=== PATIENT | female | born 1930 | race Caucasian/White ===

== ENCOUNTER 2016-11-25 02:39 | Inpatient (IN) | payer MEDICARE, BC ==
[2016-11-25] MEDS ORDERED: METHYLPREDNISOLONE INJ 125 MG/2 ML SDV IV ONE (03:30)
[2016-11-25] MEDS ORDERED: IPRATROPIUM/ALBUTEROL 0.5-2.5 MG/3 ML AMPUL NEB ONE (03:30)
[2016-11-25 04:14] LABS: VENOUS BLOOD BASE EXCESS -0.7 mmol/L; VENOUS BLOOD HCO3 24.3 mmol/L (20-32); VENOUS BLOOD PH 7.39 (7.30-7.42)
[2016-11-25 04:24] LABS: ALANINE AMINOTRANSFERASE 36 U/L (9-52); ALBUMIN 3.3 g/dL (3.5-5.0); ALKALINE PHOSPHATASE 81 U/L (38-126); ANION GAP 15 (5-19); ASPARTATE AMINO TRANSFERASE 25 U/L (14-36); BILIRUBIN,DIRECT 0.3 mg/dL (0.0-0.4); BILIRUBIN,TOTAL 1.1 mg/dL (0.2-1.3); BLOOD UREA NITROGEN 36 mg/dL (7-20); CALCIUM 8.7 mg/dL (8.4-10.2); CARBON DIOXIDE 23 mmol/L (22-30); CHLORIDE 100 mmol/L (98-107); CREATININE RESULT 1.27 mg/dL (0.52-1.25); GLUCOSE 203 mg/dL (75-110); SODIUM 138.1 mmol/L (137-145); TOTAL PROTEIN 5.8 g/dL (6.3-8.2)
[2016-11-25] MEDS ORDERED: NORMAL SALINE 1000 ML 1,000 ML IV ONE (04:43)
[2016-11-25 04:49] LABS: HEMATOCRIT 38.4 % (36.0-47.0); HEMOGLOBIN 12.5 g/dL (12.0-15.5); HGB HCT DIFFERENCE -0.9; MEAN CORPUSCULAR HEMOGLOBIN 29.4 pg (27.0-33.4); MEAN CORPUSCULAR HGB CONC 32.5 g/dL (32.0-36.0); MEAN CORPUSCULAR VOLUME 91 fl (80-97); RED BLOOD COUNT 4.24 10^6/uL (3.72-5.28); RED CELL DISTRIBUTION WIDTH 14.4 % (11.5-14.0); WHITE BLOOD COUNT 24.3 10^3/uL (4.0-10.5)
[2016-11-25 04:59] LABS: BAND NEUTROPHILS % (MANUAL) 7 % (3-5); BASOPHILS % (MANUAL) 0 % (0-2); EOSINOPHILS % (MANUAL) 0 % (0-6); LYMPHOCYTES % (MANUAL) 5 % (13-45); TOTAL CELLS COUNTED 100
[2016-11-25 05:00] LABS: ANISOCYTOSIS SLIGHT; OVALOCYTES SLIGHT; POIKILOCYTOSIS SLIGHT; TOXIC GRANULATION SLIGHT; TOXIC VACUOLATION PRESENT
[2016-11-25 05:01] LABS: SCHISTOCYTES SLIGHT
[2016-11-25 05:10] LABS: CREATINE KINASE MB 1.58 ng/mL (<4.55)
[2016-11-25 05:31] LABS: AMORPHOUS SEDIMENT,URINE TRACE /HPF; APPEARANCE,URINE CLOUDY; BILIRUBIN,URINE NEGATIVE (NEGATIVE); GLUCOSE, URINE NEGATIVE (NEGATIVE); KETONES,URINE NEGATIVE (NEGATIVE); LEUKOCYTE ESTERASE,URINE NEGATIVE (NEGATIVE); NITRITE,URINE NEGATIVE (NEGATIVE); PROTEIN,URINE 30 mg/dL (NEGATIVE); URINE SPECIFIC GRAVITY 1.019; UROBILINOGEN,URINE NEGATIVE mg/dL (<2.0)
[2016-11-25] MEDS ORDERED: CEFTRIAXONE 1 GM/D5W RTU 50 ML IV ONE (05:31)
[2016-11-25] MEDS ORDERED: AZITHROMYCIN INJ 500 MG VIAL IV ONE (05:31)
[2016-11-25] MEDS ORDERED: DEXTROSE 50%-WATER 25 GM/50 ML DISP.SYRIN IV PRN ×2 (06:16)
[2016-11-25] MEDS ORDERED: ACETAMINOPHEN 325 MG TABLET PO PRN (06:16)
[2016-11-25] MEDS ORDERED: DEXTROSE 40% GEL 15 GM TUBE PO PRN ×2 (06:16)
[2016-11-25] MEDS ORDERED: GUAIFENESIN SYRP 200 MG/10 ML UDC PO PRN (06:16)
[2016-11-25] MEDS ORDERED: GLUCAGON,HUMAN RECOMB 1 MG INJ IM PRN (06:16)
--- NOTE | 2016-11-25 06:24 | ER Document Report ---
ED Fall - General TRAVEL OUTSIDE OF THE [place] IN LAST 30 DAYS: No <FRANCISCO JAVIER ANNE - Last Filed: 11/25/16 07:33> <TANIYA MOONEY - Last Filed: 11/26/16 05:29> - General Chief Complaint: Fall Stated Complaint: FALL/HEAD INJURY Notes: Patient is an 86-year-old female presents emergency department via EMS with complaint of fall at home. Patient lives in her own home where she has an aid throughout the day with her. Her aid and daughter state that typically at home she does not wear her oxygen and typically in the middle the night when she has go the bathroom she gets short of breath and dizzy and has a tendency to fall. History including COPD on continuous O2 at 3 L but she often needs to be redirected to wear it. Daughter also notes that she has developed a cough over the past day, she only admits shortness of breath when she is wearing her oxygen but typically when they get her back on her O2 and give her breathing treatment she seems department backup. Denies any fevers at home. Denies any history of coronary artery disease, CHF, history of stroke or TIA. Denies h/o dementia Past medical history significant for hypertension, COPD on continuous 3 L O2, recurrent urinary tract infections, history of scoliosis, history of diverticulosis, history of irregular heart rate. Past surgical history significant for hysterectomy section Social history former smoker, rare alcohol use, denies any drug use. Seasonal allergies, no known drug allergies. (FRANCISCO JAVIER ANNE) - Related data Allergies/Adverse Reactions: No Known Allergies Allergy (Verified 07/29/14 18:23) Past Medical History - Social History Smoking Status: Former Smoker Family History: Reviewed & Not Pertinent - I. - Past Medical History Cardiac Medical History: Reports: Hx Atrial Fibrillation, Hx Hypertension Denies: Hx Heart Attack Pulmonary Medical History: Reports: Hx Asthma Neurological Medical History: Denies: Hx Cerebrovascular Accident, Hx Seizures GI Medical History: Denies: Hx Hepatitis, Hx Hiatal Hernia, Hx Ulcer Infectious Medical History: Denies: Hx Hepatitis Past Surgical History: Reports: Hx Hysterectomy. Denies: Hx Mastectomy, Hx Open Heart Surgery, Hx Pacemaker - Immunizations Hx Diphtheria, Pertussis, Tetanus Vaccination: Yes <FRANCISCO JAVIER ANNE - Last Filed: 11/25/16 07:33> Review of Systems - Review of Systems Constitutional: No symptoms reported EENT: No symptoms reported Cardiovascular: No symptoms reported Respiratory: See HPI Gastrointestinal: No symptoms reported Genitourinary: No symptoms reported Female Genitourinary: No symptoms reported Musculoskeletal: No symptoms reported Skin: No symptoms reported Hematologic/Lymphatic: No symptoms reported Neurological/Psychological: No symptoms reported <FRANCISCO JAVIER ANNE - Last Filed: 11/25/16 07:33> Physical Exam <FRANCISCO JAVIER ANNE - Last Filed: 11/25/16 07:33> <TANIYA MOONEY - Last Filed: 11/26/16 05:29> - Vital signs Vitals: Resp BP Pulse Ox 27 H 113/62 92 11/25/16 02:49 11/25/16 02:49 11/25/16 02:49 - Notes Notes: PHYSICAL EXAM GENERAL: Alert, interacts well. HEAD: Normocephalic, evidence of skin tear on the right eyebrow. EYES: Pupils equal, round, and reactive to light. Extraocular movements intact. ENT: Oral mucosa moist, tongue midline. NECK: Full range of motion. Supple. Trachea midline. LUNGS: Rales noted bilaterally worse on the left side.. No respiratory distress. HEART: Regular rate and rhythm. No murmurs, gallops, or rubs. ABDOMEN: Soft, nondistended, nontender. No guarding, rebound, or rigidity.. Bowel sounds present in all 4 quadrants. EXTREMITIES: Moves all 4 extremities spontaneously. No edema, radial and dorsalis pedis pulses 2/4 bilaterally. No cyanosis. No pain to palpation of all extremities. No evidence of deformities. NEUROLOGICAL: Alert and oriented to person and place but not to time or events. Normal speech. PSYCH: Normal affect, normal mood. SKIN: Warm, dry, elastic turgor. No rashes or lesions noted. Skin tears noted on the right knee, left cox as well as the right elbow. (FRANCISCO JAVIER ANNE) Course - Laboratory Result Diagrams: 11/25/16 04:00 11/25/16 04:00 - Diagnostic Test Radiology reviewed: Image reviewed, Reports reviewed - EKG Interpretation by Me EKG shows normal: Sinus rhythm Rate: Tachycardia [place]/QRS: LAHB/LAFB When compared to previous EKG there are: No significant change <FRANCISCO JAVIER ANNE - Last Filed: 11/25/16 07:33> - Laboratory Result Diagrams: 11/26/16 04:12 11/26/16 04:12 <TANIYA MOONEY - Last Filed: 11/26/16 05:29> - Re-evaluation Re-evalutation: 11/25/16 07:28 Patient is an 86-year-old female presents to the emergency department via EMS after a fall. On initial evaluation, patient is hemodynamically stable, no acute distress and afebrile. Vital signs do reveal tachycardia, saturations in the low 90s on her 2 L of nasal cannula. Given the patient's age, nature of her fall and that is unwitnessed with evidence of skin laceration I consulted supervising physician Dr. Taniya Mooney who recommends a CT of the head and neck without contrast. Basic lab work also sent as well. Return if her chest x-ray did reveal left lower lobe pneumonia. CBC revealed a white blood cell count revealed a leukocytosis with a white blood cell count of 24.3. With the return of his lab a initiation of the sepsis protocol was started. Patient is initiated on IV azithromycin and Rocephin for indication of community-acquired pneumonia. CT the head and neck came back which revealed no evidence of acute fracture or injury. Further review of laboratory evaluation shows evidence of dehydration with mild increase in renal function. With review of all this information and discussion with family, patient needs inpatient criteria for admission for any acquired pneumonia. I have consulted supervising physician Dr. Taniya Mooney who agrees with consultation of hospitalist Dr. Rajiv Tucker for admission. Patient was accepted for inpatient admission for kidney acquired pneumonia. Per [facility] protocol and guidelines, this case was discussed with supervising physician Dr. Taniya Mooney prior to discharge (FRANCISCO JAVIER ANNE) - Vital Signs Vital signs: Temp Pulse Resp BP Pulse Ox 97.5 F 82 22 H 126/81 H 96 11/26/16 00:46 11/26/16 02:00 11/26/16 00:46 11/26/16 00:46 11/26/16 02:00 - Laboratory Laboratory results interpreted by me: 11/25/16 11/25/16 11/25/16 04:00 04:00 04:00 WBC 24.3 H RDW 14.4 H Seg Neuts % (Manual) 83 H Band Neutrophils % 7 H Lymphocytes % (Manual) 5 L Abs Neuts (Manual) 21.9 H BUN 36 H Creatinine 1.27 H Est GFR ( Amer) 48 L Est GFR (Non-Af Amer) 40 L Glucose 203 H Lactic Acid NT-Pro-B Natriuret Pep 3160 H Total Protein 5.8 L Albumin 3.3 L Urine Protein Urine Ascorbic Acid 11/25/16 11/25/16 04:00 05:00 WBC RDW Seg Neuts % (Manual) Band Neutrophils % Lymphocytes % (Manual) Abs Neuts (Manual) BUN Creatinine Est GFR ( Amer) Est GFR (Non-Af Amer) Glucose Lactic Acid 2.4 H NT-Pro-B Natriuret Pep Total Protein Albumin Urine Protein 30 H Urine Ascorbic Acid 40 H Discharge - Discharge Admitting Provider: [facility] Unit Admitted: Telemetry <FRANCISCO JAVIER ANNE - Last Filed: 11/25/16 07:33> <TANIYA MOONEY - Last Filed: 11/26/16 05:29> - Discharge Clinical Impression: Pneumonia Qualifiers: Pneumonia type: due to unspecified organism Laterality: left Lung location: lower lobe of lung Qualified Code(s): J18.1 - Lobar pneumonia, unspecified organism Fall Qualifiers: Encounter type: initial encounter Qualified Code(s): W19.XXXA - Unspecified fall, initial encounter Condition: Stable Disposition: ADMITTED INPATIENT
[2016-11-25] MEDS ORDERED: NORMAL SALINE 1000 ML 1,000 ML IV SCH (06:30)
[2016-11-25] MEDS ORDERED: DILTIAZEM HCL 180 MG CAPSULE.CR PO ONE ×2 (06:30→08:00)
[2016-11-25] MEDS ORDERED: DILTIAZEM HCL 180 MG CAPSULE.CR PO SCH (06:30)
[2016-11-25] MEDS: DILTIAZEM HCL 180 MG CAPSULE.CR PO SCH (08:00)
--- NOTE | 2016-11-25 08:15 | EKG REPORT ---
SEVERITY:- ABNORMAL ECG - SINUS TACHYCARDIA VENTRICULAR PREMATURE COMPLEX PROBABLE LEFT ATRIAL ABNORMALITY LEFT ANTERIOR FASCICULAR BLOCK LVH WITH SECONDARY REPOLARIZATION ABNORMALITY : Confirmed by: Tatiana Maddox 25-Nov-2016 08:14:47
[2016-11-25] MEDS: IPRATROPIUM/ALBUTEROL 0.5-2.5 MG/3 ML AMPUL NEB SCH ×3 (09:15→20:43)
[2016-11-25] MEDS ORDERED: CEFTRIAXONE 1 GM/D5W RTU 50 ML IV SCH (10:00)
[2016-11-25] MEDS: AZITHROMYCIN 500 MG in DEXTROSE 5%-WATER 250 ML IV SCH (10:16)
[2016-11-25] MEDS: GUAIFENESIN 600 MG TABLET.SA PO SCH ×2 (10:17→21:15)
[2016-11-25] MEDS: HEPARIN SOD (PORCINE) 5,000 UNIT/ML 1 ML SYRINGE SUBCUT SCH ×2 (13:47→21:15)
[2016-11-25] MEDS: HYDROCODONE/ACETAMINOPHEN 10-325 MG TABLET PO PRN (13:47)
--- NOTE | 2016-11-25 14:50 | PDOC PROGRESS REPORT ---
Subjective Progress Note for:: 11/25/16 Subjective:: Patient seen in rounds. She is presently resting comfortably in bed. Granddaughter is at bedside. She denies any shortness of breath, cough or dyspnea. She denies fever or chills. She states she has a slight headache for she hit the side of her head. She denies nausea, vomiting, or diarrhea. She denies any significant pain or arthralgias. She does have periods of confusion which was normal for her according to her granddaughter. Physical Exam Vital Signs: Temp Pulse Resp BP Pulse Ox 97.5 F 101 H 20 103/48 L 97 11/25/16 11:47 11/25/16 14:12 11/25/16 14:12 11/25/16 11:47 11/25/16 14:12 Intake & Output 11/24/16 11/25/16 11/26/16 06:59 06:59 06:59 Weight 56.9 kg General appearance: PRESENT: no acute distress, thin, well-developed Head exam: PRESENT: atraumatic, normocephalic Eye exam: PRESENT: conjunctiva pink, EOMI, PERRLA. ABSENT: scleral icterus Ear exam: PRESENT: normal external ear exam Mouth exam: PRESENT: moist, tongue midline Neck exam: ABSENT: carotid bruit, JVD, lymphadenopathy, thyromegaly Respiratory exam: PRESENT: clear to auscultation jer. ABSENT: rales, rhonchi, wheezes Cardiovascular exam: PRESENT: RRR. ABSENT: diastolic murmur, rubs, systolic murmur Pulses: PRESENT: normal dorsalis pedis pul Vascular exam: PRESENT: normal capillary refill GI/Abdominal exam: PRESENT: normal bowel sounds, soft. ABSENT: distended, guarding, mass, organolmegaly, rebound, tenderness Rectal exam: PRESENT: deferred Extremities exam: PRESENT: full ROM. ABSENT: calf tenderness, clubbing, pedal edema Neurological exam: PRESENT: alert, oriented to person, CN II-XII grossly intact Psychiatric exam: PRESENT: appropriate affect, normal mood. ABSENT: homicidal ideation, suicidal ideation Skin exam: PRESENT: dry, intact, warm. ABSENT: cyanosis, rash Results Laboratory Results: 11/25/16 10:04 Lactic Acid 5.5 H Impressions: Chest X-Ray 11/25/16 02:54 IMPRESSION: Moderate left lower lobar pneumonia. Small left effusion. 7-12 week surveillance radiographs recommended. Cervical Spine CT 11/25/16 05:08 IMPRESSION: CHRONIC DEGENERATIVE CHANGES. NO ACUTE FINDINGS. Head CT 11/25/16 05:08 IMPRESSION: No acute abnormality in the brain. Assessment & Plan - Diagnosis (1) Pneumonia Qualifiers: Pneumonia type: due to unspecified organism Laterality: left Lung location: lower lobe of lung Qualified Code(s): J18.1 - Lobar pneumonia, unspecified organism Is this a current diagnosis for this admission?: YesPlan: Continue IV broad-spectrum antibiotics, nebulizer treatments and steroids. (2) COPD with acute exacerbation Is this a current diagnosis for this admission?: YesPlan: Patient with history of COPD on home oxygen at 3 L/m. She does her daughter she does have a history of mild dementia and often forgets to wear her oxygen especially at night. Daughter states she has frequent falls at night due to this. (3) Fall Qualifiers: Encounter type: initial encounter Qualified Code(s): W19.XXXA - Unspecified fall, initial encounter Is this a current diagnosis for this admission?: YesPlan: Patient with no fractures after doyle scan. Small laceration to her right forehead and right knee. Patient will be on bed alert and fall precautions. (4) Tachycardia Is this a current diagnosis for this admission?: YesPlan: Patient has prior history of paroxysmal atrial fibrillation. She is sinus rhythm at present time - Time Time Spent with patient: 25-34 minutes Critical Time spent with patient: 15-24 minutes Medications reviewed and adjusted accordingly: Yes Anticipated discharge: Home with Homehealth
[2016-11-25] MEDS: BUDESONIDE NEB 0.5 MG/2 ML AMPUL NEB SCH (20:43)
[2016-11-25] MEDS: TEMAZEPAM 15 MG CAPSULE PO SCH (21:15)
[2016-11-25] MEDS ORDERED: (PENDING PHARMACY ID) (Temazepam [Restoril] 30 MG) PO SCH (22:00)
[2016-11-26] MEDS: IPRATROPIUM/ALBUTEROL 0.5-2.5 MG/3 ML AMPUL NEB SCH ×4 (02:33→20:08)
[2016-11-26 04:37] LABS: ABSOLUTE LYMPHOCYTES (AUTO) 2.1 10^3/uL (0.5-4.7); ABSOLUTE MONOCYTES (AUTO) 0.6 10^3/uL (0.1-1.4); ABSOLUTE NEUT (AUTO) 16.9 10^3/uL (1.7-8.2); ANION GAP 11 (5-19); BLOOD UREA NITROGEN 27 mg/dL (7-20); CALCIUM 9.1 mg/dL (8.4-10.2); CARBON DIOXIDE 23 mmol/L (22-30); CHLORIDE 104 mmol/L (98-107); CREATININE RESULT 0.74 mg/dL (0.52-1.25); GLUCOSE 172 mg/dL (75-110); HEMATOCRIT 33.4 % (36.0-47.0); HGB HCT DIFFERENCE -0.4; LYMPHOCYTES % (AUTO) 10.8 % (13-45); MEAN CORPUSCULAR HEMOGLOBIN 29.7 pg (27.0-33.4); MEAN CORPUSCULAR HGB CONC 32.8 g/dL (32.0-36.0); MEAN CORPUSCULAR VOLUME 90 fl (80-97); POTASSIUM 5.1 mmol/L (3.6-5.0); RED BLOOD COUNT 3.69 10^6/uL (3.72-5.28); RED CELL DISTRIBUTION WIDTH 14.1 % (11.5-14.0); SEGMENTED NEUTROPHILS % (AUTO) 86.2 % (42-78); SODIUM 137.7 mmol/L (137-145); WHITE BLOOD COUNT 19.6 10^3/uL (4.0-10.5)
[2016-11-26] MEDS: HEPARIN SOD (PORCINE) 5,000 UNIT/ML 1 ML SYRINGE SUBCUT SCH ×3 (05:45→21:24)
[2016-11-26] MEDS: BUDESONIDE NEB 0.5 MG/2 ML AMPUL NEB SCH ×2 (07:57→20:07)
[2016-11-26] MEDS: GUAIFENESIN 600 MG TABLET.SA PO SCH ×2 (10:27→21:29)
[2016-11-26] MEDS: PREDNISONE 10 MG TABLET PO SCH (10:27)
[2016-11-26] MEDS: CEFTRIAXONE 1 GM/D5W RTU 1 GM/50 ML RTUPB IV SCH (10:52)
[2016-11-26] MEDS: AZITHROMYCIN 500 MG in DEXTROSE 5%-WATER 250 ML IV SCH (11:19)
--- NOTE | 2016-11-26 11:31 | PDOC PROGRESS REPORT ---
Subjective Progress Note for:: 11/26/16 Subjective:: Patient seen in rounds. She is presently resting in bedside chair. Her daughter is at bedside. She reports mom was confused last evening and agitated at times. She does have some mild baseline dementia. She denies any shortness of breath, or dyspnea. Her cough is somewhat improved. She denies fever or chills. She states she has a slight headache for she hit the side of her head. She denies nausea, vomiting, or diarrhea. She denies any significant pain or arthralgias. Physical Exam Vital Signs: Temp Pulse Resp BP Pulse Ox 97.4 F 94 20 120/56 L 100 11/26/16 05:34 11/26/16 08:10 11/26/16 08:10 11/26/16 08:10 11/26/16 08:10 Intake & Output 11/25/16 11/26/16 11/27/16 06:59 06:59 06:59 Intake Total 970 Balance 970 Weight 58.5 kg General appearance: PRESENT: no acute distress, thin, well-developed Head exam: PRESENT: atraumatic, normocephalic Eye exam: PRESENT: conjunctiva pink, EOMI, PERRLA. ABSENT: scleral icterus Ear exam: PRESENT: normal external ear exam Mouth exam: PRESENT: moist, tongue midline Neck exam: ABSENT: carotid bruit, JVD, lymphadenopathy, thyromegaly Respiratory exam: PRESENT: rales - left base, symmetrical, unlabored Cardiovascular exam: PRESENT: RRR. ABSENT: diastolic murmur, rubs, systolic murmur Pulses: PRESENT: normal dorsalis pedis pul Vascular exam: PRESENT: normal capillary refill GI/Abdominal exam: PRESENT: normal bowel sounds, soft. ABSENT: distended, guarding, mass, organolmegaly, rebound, tenderness Rectal exam: PRESENT: deferred Extremities exam: PRESENT: full ROM. ABSENT: calf tenderness, clubbing, pedal edema Neurological exam: PRESENT: alert, awake, oriented to person, oriented to place , CN II-XII grossly intact. ABSENT: motor sensory deficit Psychiatric exam: PRESENT: appropriate affect, normal mood. ABSENT: homicidal ideation, suicidal ideation Skin exam: PRESENT: dry, intact, warm. ABSENT: cyanosis, rash Results Laboratory Results: 11/26/16 04:12 11/26/16 04:12 11/26/16 11/26/16 04:12 04:12 WBC 19.6 H RBC 3.69 L Hgb 11.0 L Hct 33.4 L MCV 90 MCH 29.7 MCHC 32.8 RDW 14.1 H Plt Count 145 L Seg Neutrophils % 86.2 H Lymphocytes % 10.8 L Monocytes % 3.0 Eosinophils % 0.0 Basophils % 0.0 Absolute Neutrophils 16.9 H Absolute Lymphocytes 2.1 Absolute Monocytes 0.6 Absolute Eosinophils 0.0 Absolute Basophils 0.0 Sodium 137.7 Potassium 5.1 H Chloride 104 Carbon Dioxide 23 Anion Gap 11 BUN 27 H Creatinine 0.74 Est GFR ( Amer) > 60 Est GFR (Non-Af Amer) > 60 Glucose 172 H Calcium 9.1 Impressions: Chest X-Ray 11/25/16 02:54 IMPRESSION: Moderate left lower lobar pneumonia. Small left effusion. 7-12 week surveillance radiographs recommended. Cervical Spine CT 11/25/16 05:08 IMPRESSION: CHRONIC DEGENERATIVE CHANGES. NO ACUTE FINDINGS. Head CT 11/25/16 05:08 IMPRESSION: No acute abnormality in the brain. Assessment & Plan - Diagnosis (1) Pneumonia Qualifiers: Pneumonia type: due to unspecified organism Laterality: left Lung location: lower lobe of lung Qualified Code(s): J18.1 - Lobar pneumonia, unspecified organism Is this a current diagnosis for this admission?: YesPlan: Continue IV broad-spectrum antibiotics, nebulizer treatments and steroids. (2) COPD with acute exacerbation Is this a current diagnosis for this admission?: YesPlan: Patient with history of COPD on home oxygen at 3 L/m. She does her daughter she does have a history of mild dementia and often forgets to wear her oxygen especially at night. Daughter states she has frequent falls at night due to this. (3) Fall Qualifiers: Encounter type: initial encounter Qualified Code(s): W19.XXXA - Unspecified fall, initial encounter Is this a current diagnosis for this admission?: YesPlan: Patient with no fractures after doyle scan. Small laceration to her right forehead and right knee. Patient will be on bed alert and fall precautions. (4) Tachycardia Is this a current diagnosis for this admission?: Yes (5) Confusion associated with infection Is this a current diagnosis for this admission?: Yes (6) Confusion and disorientation Is this a current diagnosis for this admission?: YesPlan: Patient with baseline mild dementia, much more confusion with some mild nighttime agitation - Time Time Spent with patient: 25-34 minutes Critical Time spent with patient: 15-24 minutes Medications reviewed and adjusted accordingly: Yes Anticipated discharge: Home with Homehealth - Inpatient Certification Based on my medical assessment, after consideration of the patient's comorbidities, presenting symptoms, or acuity I expect that the services needed warrant INPATIENT care.: Yes Medical Necessity: Need Close Monitoring Due to Risk of Patient Decompensation, Need For IV Fluids, Need for IV Antibiotics, Risk of Complication if Not Cared For in Hospital
[2016-11-26] MEDS: HYDROCODONE/ACETAMINOPHEN 10-325 MG TABLET PO PRN (19:15)
[2016-11-26] MEDS: TEMAZEPAM 15 MG CAPSULE PO SCH (21:29)
[2016-11-27] MEDS: IPRATROPIUM/ALBUTEROL 0.5-2.5 MG/3 ML AMPUL NEB SCH ×4 (02:50→19:59)
[2016-11-27] MEDS: HEPARIN SOD (PORCINE) 5,000 UNIT/ML 1 ML SYRINGE SUBCUT SCH ×3 (07:16→22:27)
[2016-11-27] MEDS: BUDESONIDE NEB 0.5 MG/2 ML AMPUL NEB SCH ×2 (08:00→19:59)
[2016-11-27 08:18] LABS: ABSOLUTE LYMPHOCYTES (AUTO) 2.4 10^3/uL (0.5-4.7); ABSOLUTE MONOCYTES (AUTO) 0.5 10^3/uL (0.1-1.4); BASOPHILS % (AUTO) 0.1 % (0-2); HEMATOCRIT 37.1 % (36.0-47.0); HEMOGLOBIN 12.1 g/dL (12.0-15.5); HGB HCT DIFFERENCE -0.8; LYMPHOCYTES % (AUTO) 15.9 % (13-45); MEAN CORPUSCULAR HEMOGLOBIN 29.8 pg (27.0-33.4); MEAN CORPUSCULAR HGB CONC 32.6 g/dL (32.0-36.0); MEAN CORPUSCULAR VOLUME 91 fl (80-97); MONOCYTES % (AUTO) 3.6 % (3-13); RED BLOOD COUNT 4.06 10^6/uL (3.72-5.28); RED CELL DISTRIBUTION WIDTH 14.5 % (11.5-14.0); SEGMENTED NEUTROPHILS % (AUTO) 80.4 % (42-78); WHITE BLOOD COUNT 14.9 10^3/uL (4.0-10.5)
[2016-11-27 08:59] LABS: ANION GAP 11 (5-19); BLOOD UREA NITROGEN 22 mg/dL (7-20); CALCIUM 9.7 mg/dL (8.4-10.2); CARBON DIOXIDE 26 mmol/L (22-30); CHLORIDE 105 mmol/L (98-107); CREATININE RESULT 0.86 mg/dL (0.52-1.25); GLUCOSE 144 mg/dL (75-110); SODIUM 142.1 mmol/L (137-145)
[2016-11-27] MEDS: DILTIAZEM HCL 180 MG CAPSULE.CR PO SCH (09:41)
[2016-11-27] MEDS: GUAIFENESIN 600 MG TABLET.SA PO SCH ×2 (09:41→22:27)
[2016-11-27] MEDS: CEFTRIAXONE 1 GM/D5W RTU 1 GM/50 ML RTUPB IV SCH (09:41)
[2016-11-27] MEDS: AZITHROMYCIN 500 MG in DEXTROSE 5%-WATER 250 ML IV SCH (09:41)
[2016-11-27] MEDS: PREDNISONE 10 MG TABLET PO SCH (09:41)
[2016-11-27] MEDS ORDERED: BENZONATATE 100 MG CAPSULE PO PRN (10:39)
--- NOTE | 2016-11-27 10:47 | PDOC PROGRESS REPORT ---
Subjective Progress Note for:: 11/27/16 Subjective:: The patient was seen earlier today on rounds. Daughter is present at the bedside and active in the patient's care. The patient states that she does feel little better than she did yesterday. According to the daughter the patient was restless and did not go to sleep until approximately 3 AM. The patient admits to having cough but is not able to produce any sputum. The patient denies any nausea, vomiting, diarrhea, shortness of breath, dizziness, chest pain, heart palpitations, fevers, or chills. The patient has remained afebrile. Blood pressures have been in a good range. When prompted the patient voices no other concerns at this time. Review of systems: The rest of the review of systems is negative. Physical Exam Vital Signs: Temp Pulse Resp BP Pulse Ox 97.4 F 106 H 19 131/63 H 95 11/27/16 09:02 11/27/16 09:02 11/27/16 09:02 11/27/16 09:02 11/27/16 09:02 Intake & Output 11/25/16 11/26/16 11/27/16 23:59 23:59 23:59 Intake Total 970 960 5 Balance 970 960 5 Weight 58.5 kg 59.5 kg General appearance: PRESENT: no acute distress, cooperative, thin, well- developed Head exam: PRESENT: atraumatic, normocephalic Eye exam: PRESENT: conjunctiva pink, EOMI, PERRLA. ABSENT: scleral icterus Ear exam: PRESENT: normal external ear exam Mouth exam: PRESENT: moist, tongue midline Neck exam: ABSENT: carotid bruit, JVD, lymphadenopathy, thyromegaly Respiratory exam: PRESENT: decreased breath sounds, rhonchi, symmetrical, unlabored, wheezes. ABSENT: rales, tachypnea Cardiovascular exam: PRESENT: RRR. ABSENT: diastolic murmur, rubs, systolic murmur Pulses: PRESENT: normal dorsalis pedis pul Vascular exam: PRESENT: normal capillary refill GI/Abdominal exam: PRESENT: normal bowel sounds, soft. ABSENT: distended, guarding, mass, organolmegaly, rebound, tenderness Rectal exam: PRESENT: deferred Extremities exam: PRESENT: full ROM. ABSENT: calf tenderness, clubbing, pedal edema Neurological exam: PRESENT: alert - Delayed, awake, oriented to person, oriented to place, oriented to time, CN II-XII grossly intact. ABSENT: motor sensory deficit Psychiatric exam: PRESENT: appropriate affect, normal mood. ABSENT: homicidal ideation, suicidal ideation Skin exam: PRESENT: dry, intact, warm. ABSENT: cyanosis, rash Results Laboratory Results: 11/27/16 08:00 11/27/16 08:25 Impressions: Chest X-Ray 11/25/16 02:54 IMPRESSION: Moderate left lower lobar pneumonia. Small left effusion. 7-12 week surveillance radiographs recommended. Cervical Spine CT 11/25/16 05:08 IMPRESSION: CHRONIC DEGENERATIVE CHANGES. NO ACUTE FINDINGS. Head CT 11/25/16 05:08 IMPRESSION: No acute abnormality in the brain. Assessment & Plan - Diagnosis (1) COPD with acute exacerbation Is this a current diagnosis for this admission?: YesPlan: Overall symptoms continue to improve this is secondary to pneumonia. Team supplemental O2 as well as breathing treatments. (2) Left lower lobe pneumonia Qualifiers: Pneumonia type: due to unspecified organism Qualified Code(s): J18.1 - Lobar pneumonia, unspecified organism Is this a current diagnosis for this admission?: YesPlan: Sputum culture is pending. Will continue current antibiotic coverage given the patient's improvement of symptoms. Will add flutter valve. Encourage incentive spirometry. Continue Mucinex. (3) Acute on chronic respiratory failure with hypoxemia Is this a current diagnosis for this admission?: YesPlan: Will continue supplemental O2. (4) Acute encephalopathy Is this a current diagnosis for this admission?: YesPlan: This is exacerbated by the patient's infectious process as well as underlying dementia. (5) Dementia Qualifiers: Dementia type: unspecified type Dementia behavioral disturbance: with behavioral disturbance Qualified Code(s): F03.91 - Unspecified dementia with behavioral disturbance Is this a current diagnosis for this admission?: YesPlan: Patient is oriented at this time appears to be most symptoms are nocturnal. (6) Hypertension Qualifiers: Hypertension type: essential hypertension Qualified Code(s): I10 - Essential (primary) hypertension Is this a current diagnosis for this admission?: Yes (7) Fall Qualifiers: Encounter type: initial encounter Qualified Code(s): W19.XXXA - Unspecified fall, initial encounter Is this a current diagnosis for this admission?: YesPlan: Patient with no fractures after doyle scan. Small laceration to her right forehead and right knee. Patient will be on bed alert and fall precautions. - Time Time Spent with patient: 35 or more minutes Medications reviewed and adjusted accordingly: Yes Anticipated discharge: Home, SNF, Acute Rehab Within: within 48 hours
[2016-11-27] MEDS ORDERED: FLUTICASONE NASAL SPRAY 50 MCG/SPRY 120 SPRAY/16 GM NASL ONE (12:00)
[2016-11-27] MEDS: LORAZEPAM INJ 2 MG/1 ML VIAL IV PRN (17:53)
[2016-11-27] MEDS: MONTELUKAST SODIUM 10 MG TABLET PO SCH (22:27)
[2016-11-27] MEDS: TEMAZEPAM 15 MG CAPSULE PO SCH (22:27)
[2016-11-27] MEDS: FLUTICASONE NASAL SPRAY 50 MCG/SPRY 120 SPRAY/16 GM NASL SCH (22:28)
[2016-11-28 05:02] LABS: ANION GAP 12 (5-19); BLOOD UREA NITROGEN 16 mg/dL (7-20); CALCIUM 9.4 mg/dL (8.4-10.2); CARBON DIOXIDE 25 mmol/L (22-30); CHLORIDE 107 mmol/L (98-107); CREATININE RESULT 0.69 mg/dL (0.52-1.25); GLUCOSE 89 mg/dL (75-110); POTASSIUM 4.9 mmol/L (3.6-5.0); SODIUM 143.9 mmol/L (137-145)
[2016-11-28] MEDS: HEPARIN SOD (PORCINE) 5,000 UNIT/ML 1 ML SYRINGE SUBCUT SCH ×3 (05:54→21:59)
[2016-11-28 06:24] LABS: HEMATOCRIT 37.3 % (36.0-47.0); HEMOGLOBIN 12.3 g/dL (12.0-15.5); HGB HCT DIFFERENCE -0.4; MEAN CORPUSCULAR HEMOGLOBIN 29.8 pg (27.0-33.4); MEAN CORPUSCULAR VOLUME 90 fl (80-97); RED BLOOD COUNT 4.13 10^6/uL (3.72-5.28); RED CELL DISTRIBUTION WIDTH 14.2 % (11.5-14.0); WHITE BLOOD COUNT 14.7 10^3/uL (4.0-10.5)
[2016-11-28 06:38] LABS: BAND NEUTROPHILS % (MANUAL) 2 % (3-5); BASOPHILS % (MANUAL) 0 % (0-2); EOSINOPHILS % (MANUAL) 0 % (0-6); LYMPHOCYTES % (MANUAL) 18 % (13-45); TOTAL CELLS COUNTED 100
[2016-11-28 06:40] LABS: RBC MORPHOLOGY COMMENT NORMO-CYTIC/CHROMIC; TOXIC GRANULATION SLIGHT
[2016-11-28] MEDS: IPRATROPIUM/ALBUTEROL 0.5-2.5 MG/3 ML AMPUL NEB SCH (08:23)
[2016-11-28] MEDS: BUDESONIDE NEB 0.5 MG/2 ML AMPUL NEB SCH ×2 (08:23→19:34)
--- NOTE | 2016-11-28 10:51 | PDOC PROGRESS REPORT ---
Subjective Progress Note for:: 11/28/16 Subjective:: The patient was seen earlier today on rounds. No family is present at the bedside and active this time The patient states that she does feel little better than she did yesterday. According to nursing staff the patient was restless and did not go to sleep until approximately 3 AM. The patient denies any complaints but uncertain of the reliability of this history. The patient has remained afebrile. Blood pressures have been in a good range. When prompted the patient voices no other concerns at this time. Review of systems: The rest of the review of systems is negative. Physical Exam Vital Signs: Temp Pulse Resp BP Pulse Ox 97.7 F 103 H 24 H 143/90 H 97 11/28/16 08:00 11/28/16 08:00 11/28/16 08:00 11/28/16 08:00 11/28/16 08:00 Intake & Output 11/26/16 11/27/16 11/28/16 23:59 23:59 23:59 Intake Total 960 598 255 Balance 960 598 255 Weight 59.5 kg 59.8 kg General appearance: PRESENT: no acute distress, cooperative, thin, frail Head exam: PRESENT: atraumatic, normocephalic Eye exam: PRESENT: conjunctiva pink, EOMI, PERRLA. ABSENT: scleral icterus Ear exam: PRESENT: normal external ear exam Mouth exam: PRESENT: moist, tongue midline Neck exam: ABSENT: carotid bruit, JVD, lymphadenopathy, thyromegaly Respiratory exam: PRESENT: decreased breath sounds, rhonchi, symmetrical, unlabored, wheezes. ABSENT: rales, tachypnea Cardiovascular exam: PRESENT: RRR. ABSENT: diastolic murmur, rubs, systolic murmur Pulses: PRESENT: normal dorsalis pedis pul Vascular exam: PRESENT: normal capillary refill GI/Abdominal exam: PRESENT: normal bowel sounds, soft. ABSENT: distended, guarding, mass, organolmegaly, rebound, tenderness Rectal exam: PRESENT: deferred Extremities exam: PRESENT: full ROM. ABSENT: calf tenderness, clubbing, pedal edema Neurological exam: PRESENT: alert - Delayed, awake, oriented to person, oriented to place, oriented to time, CN II-XII grossly intact. ABSENT: motor sensory deficit Psychiatric exam: PRESENT: appropriate affect, normal mood. ABSENT: homicidal ideation, suicidal ideation Skin exam: PRESENT: dry, intact, warm. ABSENT: cyanosis, rash Results Laboratory Results: 11/28/16 05:31 11/28/16 04:09 11/28/16 11/28/16 11/28/16 04:09 04:09 05:31 WBC Cancelled 14.7 H RBC Cancelled 4.13 Hgb Cancelled 12.3 Hct Cancelled 37.3 MCV Cancelled 90 MCH Cancelled 29.8 MCHC Cancelled 33.0 RDW Cancelled 14.2 H Plt Count Cancelled 184 Seg Neutrophils % Cancelled Not Reportable Lymphocytes % Cancelled Not Reportable Monocytes % Cancelled Not Reportable Eosinophils % Cancelled Not Reportable Basophils % Cancelled Not Reportable Absolute Neutrophils Cancelled Not Reportable Absolute Lymphocytes Cancelled Not Reportable Absolute Monocytes Cancelled Not Reportable Absolute Eosinophils Cancelled Not Reportable Absolute Basophils Cancelled Not Reportable Sodium 143.9 Potassium 4.9 Chloride 107 Carbon Dioxide 25 Anion Gap 12 BUN 16 Creatinine 0.69 Est GFR ( Amer) > 60 Est GFR (Non-Af Amer) > 60 Glucose 89 Calcium 9.4 Impressions: Chest X-Ray 11/25/16 02:54 IMPRESSION: Moderate left lower lobar pneumonia. Small left effusion. 7-12 week surveillance radiographs recommended. Cervical Spine CT 11/25/16 05:08 IMPRESSION: CHRONIC DEGENERATIVE CHANGES. NO ACUTE FINDINGS. Head CT 11/25/16 05:08 IMPRESSION: No acute abnormality in the brain. Assessment & Plan - Diagnosis (1) COPD with acute exacerbation Is this a current diagnosis for this admission?: YesPlan: Overall symptoms continue to improve this is secondary to pneumonia. Team supplemental O2 as well as breathing treatments. (2) Left lower lobe pneumonia Qualifiers: Pneumonia type: due to unspecified organism Qualified Code(s): J18.1 - Lobar pneumonia, unspecified organism Is this a current diagnosis for this admission?: YesPlan: Will repeat chest x-ray. Sputum culture is pending. Will continue current antibiotic coverage given the patient's improvement of symptoms. And tingling flutter valve. Encourage incentive spirometry. Continue Mucinex. (3) Acute on chronic respiratory failure with hypoxemia Is this a current diagnosis for this admission?: YesPlan: Will continue supplemental O2. (4) Acute encephalopathy Is this a current diagnosis for this admission?: YesPlan: This is exacerbated by the patient's infectious process as well as underlying dementia. (5) Dementia Qualifiers: Dementia type: unspecified type Dementia behavioral disturbance: with behavioral disturbance Qualified Code(s): F03.91 - Unspecified dementia with behavioral disturbance; F10.97 - Alcohol use, unspecified with alcohol- induced persisting dementia Is this a current diagnosis for this admission?: YesPlan: Patient is oriented at this time appears to be most symptoms are nocturnal. (6) Hypertension Qualifiers: Hypertension type: essential hypertension Qualified Code(s): I10 - Essential (primary) hypertension Is this a current diagnosis for this admission?: Yes (7) Fall Qualifiers: Encounter type: initial encounter Qualified Code(s): W19.XXXA - Unspecified fall, initial encounter Is this a current diagnosis for this admission?: YesPlan: Patient with no fractures on scan. Small laceration to her right forehead and right knee. Patient will be on bed alert and fall precautions. - Time Time Spent with patient: 25-34 minutes Anticipated discharge: SNF, Acute Rehab Within: within 24 hours, within 48 hours, when bed available
[2016-11-28] MEDS: DILTIAZEM HCL 180 MG CAPSULE.CR PO SCH (12:01)
[2016-11-28] MEDS: AZITHROMYCIN 500 MG in DEXTROSE 5%-WATER 250 ML IV SCH (12:01)
[2016-11-28] MEDS: GUAIFENESIN 600 MG TABLET.SA PO SCH ×2 (12:01→21:59)
[2016-11-28] MEDS: CEFTRIAXONE 1 GM/D5W RTU 1 GM/50 ML RTUPB IV SCH (12:01)
[2016-11-28] MEDS: FLUTICASONE NASAL SPRAY 50 MCG/SPRY 120 SPRAY/16 GM NASL SCH ×2 (12:02→21:59)
[2016-11-28] MEDS: PREDNISONE 10 MG TABLET PO SCH (12:02)
[2016-11-28] MEDS ORDERED: FUROSEMIDE INJ/PF 40 MG/4 ML SDV IV ONE (13:41)
[2016-11-28 14:40] LABS: VENOUS BLOOD BASE EXCESS 4.4 mmol/L; VENOUS BLOOD HCO3 28.8 mmol/L (20-32); VENOUS BLOOD PCO2 42.2 mmHg (35-63); VENOUS BLOOD PH 7.45 (7.30-7.42)
[2016-11-28] MEDS: LEVALBUTEROL HCL NEB 0.63 MG/3 ML AMPUL NEB PRN ×2 (14:55→19:34)
[2016-11-28] MEDS ORDERED: METHYLPREDNISOLONE INJ 125 MG/2 ML SDV IV ONE (15:00)
[2016-11-28] MEDS: MONTELUKAST SODIUM 10 MG TABLET PO SCH (21:59)
[2016-11-28] MEDS: TEMAZEPAM 15 MG CAPSULE PO SCH (21:59)
[2016-11-29] MEDS: HEPARIN SOD (PORCINE) 5,000 UNIT/ML 1 ML SYRINGE SUBCUT SCH ×3 (06:01→21:16)
[2016-11-29] MEDS: BUDESONIDE NEB 0.5 MG/2 ML AMPUL NEB SCH ×2 (08:20→19:45)
[2016-11-29] MEDS: LEVALBUTEROL HCL NEB 0.63 MG/3 ML AMPUL NEB PRN ×2 (08:22→16:32)
[2016-11-29] MEDS: FLUTICASONE NASAL SPRAY 50 MCG/SPRY 120 SPRAY/16 GM NASL SCH ×2 (10:29→21:15)
[2016-11-29] MEDS: GUAIFENESIN 600 MG TABLET.SA PO SCH ×2 (10:30→21:16)
[2016-11-29] MEDS: PREDNISONE 10 MG TABLET PO SCH (10:30)
[2016-11-29] MEDS: CEFTRIAXONE 1 GM/D5W RTU 1 GM/50 ML RTUPB IV SCH (10:30)
[2016-11-29] MEDS: DILTIAZEM HCL 180 MG CAPSULE.CR PO SCH (12:04)
[2016-11-29] MEDS: AZITHROMYCIN 500 MG in DEXTROSE 5%-WATER 250 ML IV SCH (12:04)
--- NOTE | 2016-11-29 12:51 | PDOC PROGRESS REPORT ---
Subjective Progress Note for:: 11/29/16 Subjective:: The patient was seen earlier today on rounds. Family is present at the bedside and active in the patient's care. The patient apparently slept better overnight. The patient appears much improved in comparison to yesterday. The patient has remained afebrile. Blood pressures have been in a good range. When prompted the patient voices no other concerns at this time. Review of systems: The rest of the review of systems is negative. Physical Exam Vital Signs: Temp Pulse Resp BP Pulse Ox 98.1 F 101 H 18 145/78 H 98 11/29/16 07:14 11/29/16 12:09 11/29/16 12:09 11/29/16 12:09 11/29/16 12:09 Intake & Output 11/27/16 11/28/16 11/29/16 23:59 23:59 23:59 Intake Total 598 820 125 Balance 598 820 125 Weight 59.5 kg 59.8 kg 59.8 kg General appearance: PRESENT: no acute distress, cooperative, thin, frail Head exam: PRESENT: atraumatic, normocephalic Eye exam: PRESENT: conjunctiva pink, EOMI, PERRLA. ABSENT: scleral icterus Ear exam: PRESENT: normal external ear exam Mouth exam: PRESENT: moist, tongue midline Neck exam: ABSENT: carotid bruit, JVD, lymphadenopathy, thyromegaly Respiratory exam: PRESENT: decreased breath sounds, rhonchi, symmetrical, unlabored, wheezes. ABSENT: rales, tachypnea Cardiovascular exam: PRESENT: RRR. ABSENT: diastolic murmur, rubs, systolic murmur Pulses: PRESENT: normal dorsalis pedis pul Vascular exam: PRESENT: normal capillary refill GI/Abdominal exam: PRESENT: normal bowel sounds, soft. ABSENT: distended, guarding, mass, organolmegaly, rebound, tenderness Rectal exam: PRESENT: deferred Extremities exam: PRESENT: full ROM. ABSENT: calf tenderness, clubbing, pedal edema Neurological exam: PRESENT: alert - Delayed, awake, oriented to person, oriented to place, oriented to time, CN II-XII grossly intact. ABSENT: motor sensory deficit Psychiatric exam: PRESENT: appropriate affect, normal mood. ABSENT: homicidal ideation, suicidal ideation Skin exam: PRESENT: dry, intact, warm. ABSENT: cyanosis, rash Results Laboratory Results: 11/28/16 05:31 11/28/16 04:09 11/28/16 11/28/16 11/28/16 14:22 14:22 18:50 VBG pH 7.45 H VBG pCO2 42.2 VBG HCO3 28.8 VBG Base Excess 4.4 Lactic Acid 2.1 3.3 H 11/26/16 13:00 Sputum Gram Stain - Final 11/26/16 13:00 Sputum Sputum Culture - Final Group F Beta Streptococcus Normal Carol Impressions: Cervical Spine CT 11/25/16 05:08 IMPRESSION: CHRONIC DEGENERATIVE CHANGES. NO ACUTE FINDINGS. Head CT 11/25/16 05:08 IMPRESSION: No acute abnormality in the brain. Chest X-Ray 11/28/16 00:00 IMPRESSION: Bibasilar pneumonia, left more than right. 7-12 week surveillance recommended. Assessment & Plan - Diagnosis (1) COPD with acute exacerbation Is this a current diagnosis for this admission?: YesPlan: Overall symptoms continue to improve this is secondary to pneumonia. Team supplemental O2 as well as breathing treatments. (2) Left lower lobe pneumonia Qualifiers: Pneumonia type: due to unspecified organism Qualified Code(s): J18.1 - Lobar pneumonia, unspecified organism Is this a current diagnosis for this admission?: YesPlan: Sputum culture revealed strep. Will continue current antibiotic coverage given the patient's improvement of symptoms. And encourage flutter valve. Encourage incentive spirometry. Continue Mucinex. (3) Acute on chronic respiratory failure with hypoxemia Is this a current diagnosis for this admission?: YesPlan: Will continue supplemental O2. This improved with diuresis. Will obtain echocardiogram given pleural effusions on chest x-ray. (4) Acute encephalopathy Is this a current diagnosis for this admission?: YesPlan: This is exacerbated by the patient's infectious process as well as underlying dementia. (5) Dementia Qualifiers: Dementia type: unspecified type Dementia behavioral disturbance: with behavioral disturbance Qualified Code(s): F03.91 - Unspecified dementia with behavioral disturbance; F10.97 - Alcohol use, unspecified with alcohol- induced persisting dementia Is this a current diagnosis for this admission?: YesPlan: Patient is oriented at this time appears to be most symptoms are nocturnal. (6) Hypertension Qualifiers: Hypertension type: essential hypertension Qualified Code(s): I10 - Essential (primary) hypertension Is this a current diagnosis for this admission?: Yes (7) Fall Qualifiers: Encounter type: initial encounter Qualified Code(s): W19.XXXA - Unspecified fall, initial encounter Is this a current diagnosis for this admission?: YesPlan: Patient with no fractures on scan. Small laceration to her right forehead and right knee. Patient will be on bed alert and fall precautions. - Time Time Spent with patient: 25-34 minutes Medications reviewed and adjusted accordingly: Yes Anticipated discharge: SNF, Acute Rehab Within: within 48 hours, when bed available
--- NOTE | 2016-11-29 21:07 | XCELERA REPORT ---
[address] [address] Transthoracic Echocardiogram Report Name: PRATEEK JAMES Age: 86 yrs Gender: Female : 1930 Patient Status: Inpatient Patient Location: 5\S\538\S\A Study Date: 11/29/2016 02:03 PM Height: 67 in Weight: 131 lb BSA: 1.7 m2 Procedure: A complete two-dimensional transthoracic echocardiogram was performed (2D, M-mode, spectral and color flow Doppler). The study was technically difficult with many images being suboptimal in quality. Reason For Study: Effusions, dyspnea Ordering Physician: MARISOL MORALES Performed By: Rosenda Galvan Interpretation Summary LV EF is 35% The study was technically difficult with many images being suboptimal in quality. There is borderline concentric left ventricular hypertrophy. The left ventricle is grossly normal size. Doppler measurements suggest reversible restrictive left ventricular relaxation, which is associated with grade III/IV or moderate diastolic dysfunction Wall motion cannot be accurately commented on, but no definite regional wall motion abnormalities noted. The right ventricular systolic function is normal. The left atrium is mildly dilated. The right atrium is normal. There is a mild amount of mitral regurgitation There is no mitral valve stenosis. No aortic regurgitation is present. There is no aortic valve stenosis There is a trace or physiologic amount of tricuspid regurgitation Tricuspid regurgitation jet envelope not well defined to measure RV systolic pressure accurately. The aortic root is not well visualized. The inferior vena cava appeared normal and decreased > 50% with respiration (RAP 5-10 mmHg) There is no pericardial effusion. MMode/2D Measurements \T\ Calculations RVDd: 2.8 cm LVIDd: 5.2 cm FS: 14.1 % Ao root diam: 2.7 cm IVSd: 0.79 cm LVIDs: 4.5 cm EDV(Teich): 131.0 ml LVPWd: 0.77 cm ESV(Teich): 91.9 ml Ao root area: 5.7 cm2 EF(Teich): 29.9 % LA dimension: 3.9 cm Doppler Measurements \T\ Calculations MV E max danya: MV P1/2t max danya: Ao V2 max: LV V1 max P.3 cm/sec 129.8 cm/sec 97.7 cm/sec 2.1 mmHg MV A max danya: MV P1/2t: 37.6 msec Ao max PG: LV V1 max: 40.5 cm/sec 3.8 mmHg 72.1 cm/sec MV E/A: 3.2 MVA(P1/2t): 5.9 cm2 MV dec slope: 1012 cm/sec2 MV dec time: 0.13 sec PA V2 max: PI end-d danya: TR max danya: 67.1 cm/sec 154.2 cm/sec 218.9 cm/sec PA max P.8 mmHg TR max P.2 mmHg Left Ventricle The left ventricle is grossly normal size. There is borderline concentric left ventricular hypertrophy. LV EF is 35%. Doppler measurements suggest reversible restrictive left ventricular relaxation, which is associated with grade III/IV or moderate diastolic dysfunction. Wall motion cannot be accurately commented on, but no definite regional wall motion abnormalities noted. Right Ventricle The right ventricle is grossly normal size. There is normal right ventricular wall thickness. The right ventricular systolic function is normal. Atria The right atrium is normal. The left atrium is mildly dilated. Interarterial septum not well visualized and not well dopplered. Cannot comment on ASD/PFO presence. Mitral Valve There is mild mitral leaflet calcification. There is mild to moderate mitral annular calcification. There is no mitral valve stenosis. There is a mild amount of mitral regurgitation. Aortic Valve The aortic valve is sclerotic, but shows no functional abnormality. There is no aortic valve stenosis. No aortic regurgitation is present. Tricuspid Valve The tricuspid valve is not well visualized, but is grossly normal. There is no tricuspid stenosis. There is a trace or physiologic amount of tricuspid regurgitation. Tricuspid regurgitation jet envelope not well defined to measure RV systolic pressure accurately. Pulmonic Valve The pulmonic valve is not well visualized. Great Vessels The aortic root is not well visualized. The inferior vena cava appeared normal and decreased > 50% with respiration (RAP 5-10 mmHg). Effusions There is no pericardial effusion. : MARISOL MORALES > Tatiana Maddox
[2016-11-29] MEDS: TEMAZEPAM 15 MG CAPSULE PO SCH (21:15)
[2016-11-29] MEDS: MONTELUKAST SODIUM 10 MG TABLET PO SCH (21:16)
[2016-11-30] MEDS: HEPARIN SOD (PORCINE) 5,000 UNIT/ML 1 ML SYRINGE SUBCUT SCH ×3 (06:20→23:36)
[2016-11-30 07:00] LABS: HEMATOCRIT 42.1 % (36.0-47.0); HEMOGLOBIN 13.8 g/dL (12.0-15.5); HGB HCT DIFFERENCE -0.7; MEAN CORPUSCULAR HEMOGLOBIN 29.5 pg (27.0-33.4); MEAN CORPUSCULAR HGB CONC 32.7 g/dL (32.0-36.0); MEAN CORPUSCULAR VOLUME 90 fl (80-97); RED BLOOD COUNT 4.67 10^6/uL (3.72-5.28); RED CELL DISTRIBUTION WIDTH 14.2 % (11.5-14.0); WHITE BLOOD COUNT 19.8 10^3/uL (4.0-10.5)
[2016-11-30 07:03] LABS: ANION GAP 10 (5-19); BLOOD UREA NITROGEN 28 mg/dL (7-20); CALCIUM 9.4 mg/dL (8.4-10.2); CARBON DIOXIDE 31 mmol/L (22-30); CHLORIDE 101 mmol/L (98-107); CREATININE RESULT 0.76 mg/dL (0.52-1.25); GLUCOSE 128 mg/dL (75-110); MAGNESIUM 1.9 mg/dL (1.6-2.3); POTASSIUM 4.8 mmol/L (3.6-5.0); SODIUM 141.6 mmol/L (137-145)
[2016-11-30] MEDS: BUDESONIDE NEB 0.5 MG/2 ML AMPUL NEB SCH ×2 (07:37→20:38)
[2016-11-30] MEDS: LEVALBUTEROL HCL NEB 0.63 MG/3 ML AMPUL NEB PRN ×2 (07:37→17:40)
[2016-11-30] MEDS: AZITHROMYCIN 500 MG in DEXTROSE 5%-WATER 250 ML IV SCH (09:09)
[2016-11-30] MEDS: DILTIAZEM HCL 180 MG CAPSULE.CR PO SCH (09:09)
[2016-11-30] MEDS: GUAIFENESIN 600 MG TABLET.SA PO SCH ×2 (09:09→23:35)
[2016-11-30] MEDS: CEFTRIAXONE 1 GM/D5W RTU 1 GM/50 ML RTUPB IV SCH (09:09)
[2016-11-30] MEDS: PREDNISONE 10 MG TABLET PO SCH (09:09)
[2016-11-30] MEDS: FLUTICASONE NASAL SPRAY 50 MCG/SPRY 120 SPRAY/16 GM NASL SCH ×2 (09:09→23:21)
[2016-11-30] MEDS ORDERED: LISINOPRIL 5 MG TABLET PO SCH (10:00)
[2016-11-30] MEDS ORDERED: LISINOPRIL 5 MG TABLET PO ONE (10:30)
[2016-11-30] MEDS ORDERED: METOPROLOL SUCCINATE 50 MG TAB.SR.24H PO ONE (10:30)
[2016-11-30] MEDS ORDERED: FUROSEMIDE INJ/PF 40 MG/4 ML SDV IV ONE (10:30)
--- NOTE | 2016-11-30 16:53 | PDOC PROGRESS REPORT ---
Subjective Progress Note for:: 11/30/16 Subjective:: The patient was seen earlier today on rounds. Family is present at the bedside and active in the patient's care. The patient apparently slept better overnight. The patient appears more dyspneic and crackly than yesterday. Had a long discussion regarding the patient's echo findings. Will consult cardiology. 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 The patient has remained afebrile. Blood pressures have been in a good range. When prompted the patient voices no other concerns at this time. Review of systems: The rest of the review of systems is negative. Physical Exam Vital Signs: Temp Pulse Resp BP Pulse Ox 97.5 F 83 18 103/49 L 97 11/30/16 15:01 11/30/16 15:01 11/30/16 15:01 11/30/16 15:01 11/30/16 15:01 Intake & Output 11/28/16 11/29/16 11/30/16 23:59 23:59 23:59 Intake Total 820 185 0 Balance 820 185 0 Weight 59.8 kg 59.8 kg 59.8 kg General appearance: PRESENT: no acute distress, cooperative, thin, frail Head exam: PRESENT: atraumatic, normocephalic Eye exam: PRESENT: conjunctiva pink, EOMI, PERRLA. ABSENT: scleral icterus Ear exam: PRESENT: normal external ear exam Mouth exam: PRESENT: moist, tongue midline Neck exam: ABSENT: carotid bruit, JVD, lymphadenopathy, thyromegaly Respiratory exam: PRESENT: decreased breath sounds, rhonchi, symmetrical, unlabored, wheezes, bilateral basal crackles. ABSENT: rales, tachypnea Cardiovascular exam: PRESENT: RRR. ABSENT: diastolic murmur, rubs, systolic murmur Pulses: PRESENT: normal dorsalis pedis pul Vascular exam: PRESENT: normal capillary refill GI/Abdominal exam: PRESENT: normal bowel sounds, soft. ABSENT: distended, guarding, mass, organolmegaly, rebound, tenderness Rectal exam: PRESENT: deferred Extremities exam: PRESENT: full ROM. ABSENT: calf tenderness, clubbing, pedal edema Neurological exam: PRESENT: alert - Delayed, awake, oriented to person, oriented to place, oriented to time, CN II-XII grossly intact. ABSENT: motor sensory deficit Psychiatric exam: PRESENT: appropriate affect, normal mood. ABSENT: homicidal ideation, suicidal ideation Skin exam: PRESENT: dry, intact, warm. ABSENT: cyanosis, rash Results Laboratory Results: 11/30/16 06:17 11/30/16 06:17 11/30/16 11/30/16 06:17 06:17 WBC 19.8 H RBC 4.67 Hgb 13.8 Hct 42.1 MCV 90 MCH 29.5 MCHC 32.7 RDW 14.2 H Plt Count 296 Sodium 141.6 Potassium 4.8 Chloride 101 Carbon Dioxide 31 H Anion Gap 10 BUN 28 H Creatinine 0.76 Est GFR ( Amer) > 60 Est GFR (Non-Af Amer) > 60 Glucose 128 H Calcium 9.4 Magnesium 1.9 Impressions: Cervical Spine CT 11/25/16 05:08 IMPRESSION: CHRONIC DEGENERATIVE CHANGES. NO ACUTE FINDINGS. Head CT 11/25/16 05:08 IMPRESSION: No acute abnormality in the brain. Chest X-Ray 11/28/16 00:00 IMPRESSION: Bibasilar pneumonia, left more than right. 7-12 week surveillance recommended. Assessment & Plan - Diagnosis (1) COPD with acute exacerbation Is this a current diagnosis for this admission?: YesPlan: Overall symptoms continue to improve this is secondary to pneumonia. 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 Given the patient's low EF will consult cardiology. Patient and family appear to elect for conservative management and would not at this time want a heart catheterization. Have added a similar transition Cardizem to Toprol-XL. Will add baby aspirin as well. (3) Acute on chronic respiratory failure with hypoxemia Is this a current diagnosis for this admission?: YesPlan: Will continue supplemental O2. This improved with diuresis. The patient chronically wears home O2 at 3 liters (4) Left lower lobe pneumonia Qualifiers: Pneumonia type: due to group B Streptococcus Qualified Code(s): J15.3 - Pneumonia due to streptococcus, group B Is this a current diagnosis for this admission?: YesPlan: Does have an atypical appearance on chest x-ray will transition to doxycycline for now. (5) Acute encephalopathy Is this a current diagnosis for this admission?: YesPlan: This is exacerbated by the patient's infectious process as well as underlying dementia. Much improved. (6) Dementia Qualifiers: Dementia type: unspecified type Dementia behavioral disturbance: with behavioral disturbance Qualified Code(s): F03.91 - Unspecified dementia with behavioral disturbance; F10.97 - Alcohol use, unspecified with alcohol- induced persisting dementia Is this a current diagnosis for this admission?: YesPlan: Patient is oriented at this time appears to be most symptoms are nocturnal. (7) Hypertension Qualifiers: Hypertension type: essential hypertension Qualified Code(s): I10 - Essential (primary) hypertension Is this a current diagnosis for this admission?: Yes (8) Fall Qualifiers: Encounter type: initial encounter Qualified Code(s): W19.XXXA - Unspecified fall, initial encounter Is this a current diagnosis for this admission?: YesPlan: Patient with no fractures on scan. Small laceration to her right forehead and right knee. Patient will be on bed alert and fall precautions. - Time Time Spent with patient: 35 or more minutes Medications reviewed and adjusted accordingly: Yes Disposition: The patient is a DO NOT RESUSCITATE DO NOT INTUBATE. Pending patient's symptomatology and diagnostic findings will reevaluate as needed.
--- NOTE | 2016-11-30 20:46 | PDOC CONSULTATION ---
Consultation Consult Date: 11/30/16 Attending physician:: MARISOL MORALES Consult reason:: Congestive heart failure, cardiomyopathy, abnormal troponin I History of Present Illness Admission Date/PCP: 11/25/16 06:16 Patient complains of: Shortness of breath History of Present Illness: Patient is an 86-year-old female admitted through emergency department via EMS with complaint of fall at home. Patient lives in her own home where she has an aid throughout the day with her. Her aid and daughter state that typically at home she does not wear her oxygen and typically in the middle the night when she has go the bathroom she gets short of breath and dizzy and has a tendency to fall. History including COPD on continuous O2 at 3 L but she often needs to be redirected to wear it. Daughter also notes that she has developed a cough over the past day, she only admits shortness of breath when she is wearing her oxygen but typically when they get her back on her O2 and give her breathing treatment she seems department backup. Denies any fevers at home. While being evaluated in the hospital, she was noted to have pleural effusion bilaterally. She was also noted to have elevated BNP level and troponin I elevation. She subsequently had a 2-D echo which was technically difficult but showed depressed LVEF. I was therefore asked to evaluate patient as regards these findings. On questioning patient denied any chest pain. She denied any sustained palpitations, syncope, near syncope. Past Medical History Cardiac Medical History: Reports: Atrial Fibrillation, Hypertension Denies: Myocardial Infarction Pulmonary Medical History: Reports: Asthma Neurological Medical History: Denies: Seizures GI Medical History: Denies: Hepatitis, Hiatal Hernia Hematology: Denies: Anemia, Sickle Cell Disease Past Surgical History Past Surgical History: Reports: Hysterectomy Denies: Amputation, Mastectomy, Pacemaker Social History Information Source: Patient Smoking Status: Former Smoker Frequency of Alcohol Use: Rare Hx Recreational Drug Use: No Hx Prescription Drug Abuse: No - Advance Directive Resuscitation Status: Full Code Surrogate healthcare decision maker:: Patient's daughter is the surrogate decision maker Family History Family History: Reviewed & Not Pertinent - I. Parental Family History Reviewed: Yes Children Family History Reviewed: Yes Sibling(s) Family History Reviewed.: Yes - Negative for premature coronary artery disease or sudden cardiac in the family amongst first degree relatives. Medication/Allergy Home Medications: Albuterol Sulfate [Albuterol Sulfate 2.5mg/3 mL] 3 ml NEB RTQ4HP PRN 11/25/16 Albuterol Sulfate [Ventolin Hfa] 1 puff IH Q4HP PRN 11/25/16 Amlodipine Besylate/Benazepril [Lotrel 2.5-10 mg Capsule] 1 cap PO BID 11/25/16 Arformoterol Tartrate [Brovana Inhalation Solution 15 mcg/2 mL] 2 ml NEB RTBID 11/25/16 Budesonide [Pulmicort Neb 0.5 mg/2 ml Ampul] 2 ml NEB RTBID 11/25/16 Docusate Sodium [Colace 100 mg Capsule] 100 mg PO DAILY PRN 11/25/16 Hydrocodone/Acetaminophen [[place] 10-325 mg Tablet] 1 tab PO QIDP PRN 11/25/16 Ipratropium [place] [Atrovent 0.02% Neb 0.5 mg/2.5 ml Ampul] 2.5 ml NEB RTTID Prednisone [Deltasone 10 mg Tablet] 10 mg PO DAILY 11/25/16 Temazepam [Restoril] 30 mg PO QHS 11/25/16 Vit C/E/Zn/Coppr/Lutein/Zeaxan [Preservision Areds 2 Softgel] 1 cap PO BID 11/25 Allergies/Adverse Reactions: No Known Allergies Allergy (Verified 07/29/14 18:23) Review of Systems Review of Systems: Please see history of present illness and past medical history as wall. Constitutional: No fever or chills reported. Head : No recent chronic headaches, recent head injury. Eyes: No recent eye pain, diplopia, redness, discharge, acute visual changes. Ears: No recent chronic ear pain, acute hearing loss, ear discharge. Oral cavity: No recent ulcerations, bleeding, oral cavity discomfort. Neck: No recent acute neck pain reported. Hematologic: No recent easy bruising or bleeding or hematologic malignancy reported. Lymphatic: No recent lymphatic malignancy, chronic lymphadenopathy reported yet Cardiovascular system review: See history of present illness. Respiratory system review: No recent chronic cough, hemoptysis, blood clots in the lungs reported. Shortness of breath on exertion Gastrointestinal system review: Negative for any recent acute or chronic abdominal pain, hematemesis, melena, recent change in bowel habits. Genitourinary system review: No recent acute or chronic hematuria, flank pain, UTI etc. reported. Skin system review: Negative for any recent abnormal bruising, no rash, no pruritus reported. Neurologic: No prior history of strokes, mini strokes, seizure disorder. Psychologic: No history of major psychosis or major depression reported. Musculoskeletal: Minor aches and pains reported. No acute joint swelling reported. History of recent falls. Endocrine: No recent polyuria, polydipsia, recent heat or cold intolerance. Physical Exam Vital Signs: Temp Pulse Resp BP Pulse Ox 97.5 F 89 20 103/49 L 97 11/30/16 15:01 11/30/16 17:40 11/30/16 17:40 11/30/16 15:01 11/30/16 17:40 Intake & Output 11/29/16 11/30/16 12/01/16 06:59 06:59 06:59 Intake Total 570 180 820 Balance 570 180 820 Weight 59.8 kg 59.8 kg Exam: GENERAL: well-nourished and in no acute distress. Alert and oriented x3 HEAD: Atraumatic, normocephalic. EYES: Pupils equal round and reactive to light, extraocular movements intact, sclera anicteric, conjunctiva are normal. ENT: TMs normal, nares patent, oropharynx clear without exudates. Moist mucous membranes. No oral ulcerations or bleeding gums noted NECK: supple without lymphadenopathy. Trachea is central. No cervical or axillary lymphadenopathy noted. Carotids are 2+, JVD 8-10 CM LUNGS: Respiration seems nonlabored, no significant accessory muscle action noted. Bilateral mild wheezing noted with mild dullness bilaterally at bases. CHEST: Palpation of the chest wall shows no significant chest wall tenderness. No other significant abnormalities noted. 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 ABDOMEN: Soft, no significant tenderness appreciated, normoactive bowel sounds. No guarding, no rebound. No rigidity noted . No masses appreciated. EXTREMITIES: Pedal pulses are 1-2+, no calf tenderness noted. No clubbing or cyanosis.trace to 1+ pedal edema noted NEUROLOGICAL: Focused neurological exam showed no significant neurologic deficit. Normal speech, no focal weakness appreciated. PSYCH: Normal mood, normal affect. Judgment and insight within normal limits. SKIN: ulcerations or signs of pruritus noted. Multiple areas of ecchymosis noted. MUSCULOSKELETAL EXAM: No significant joint swelling noted. Results Laboratory Results: 11/30/16 06:17 11/30/16 06:17 11/30/16 11/30/16 06:17 06:17 WBC 19.8 H RBC 4.67 Hgb 13.8 Hct 42.1 MCV 90 MCH 29.5 MCHC 32.7 RDW 14.2 H Plt Count 296 Sodium 141.6 Potassium 4.8 Chloride 101 Carbon Dioxide 31 H Anion Gap 10 BUN 28 H Creatinine 0.76 Est GFR ( Amer) > 60 Est GFR (Non-Af Amer) > 60 Glucose 128 H Calcium 9.4 Magnesium 1.9 11/25/16 06:27 Blood Blood Culture - Final NO GROWTH IN 5 DAYS EKG Comments: Sinus tachycardia, left axis deviation, minor nonspecific ST-T wave changes. Left anterior hemiblock noted. Cannot rule out prior anterior and inferior NE. Impressions: Cervical Spine CT 11/25/16 05:08 IMPRESSION: CHRONIC DEGENERATIVE CHANGES. NO ACUTE FINDINGS. Head CT 11/25/16 05:08 IMPRESSION: No acute abnormality in the brain. Chest X-Ray 11/28/16 00:00 IMPRESSION: Bibasilar pneumonia, left more than right. 7-12 week surveillance recommended. Assessment & Plan - Diagnosis (1) Acute combined systolic and diastolic congestive heart failure Is this a current diagnosis for this admission?: Yes (2) Cardiomyopathy Qualifiers: Cardiomyopathy type: unspecified Qualified Code(s): I42.9 - Cardiomyopathy, unspecified Is this a current diagnosis for this admission?: Yes (3) Acute on chronic respiratory failure with hypoxemia Is this a current diagnosis for this admission?: Yes (4) COPD with acute exacerbation Is this a current diagnosis for this admission?: Yes (5) Fall Qualifiers: Encounter type: initial encounter Qualified Code(s): W19.XXXA - Unspecified fall, initial encounter Is this a current diagnosis for this admission?: Yes (6) Hypertension Qualifiers: Hypertension type: essential hypertension Qualified Code(s): I10 - Essential (primary) hypertension Is this a current diagnosis for this admission?: Yes - Notes Notes: Congestive heart failure: This is related to both systolic and diastolic dysfunction. There could be element of right-sided heart failure. At this point recommend diuretic therapy. Continue RONDA inhibitor therapy. Recommend beta 1 selective beta blockers. Cardiomyopathy: 2-D echocardiogram shows severely depressed LVEF. Do not feel patient would benefit much from defibrillator therapy. Optimize therapy for underlying CHF and cardiomyopathy. Patient may have underlying CAD as cause of cardiomyopathy. Acute on chronic respiratory failure with hypoxemia: Patient has a history of severe COPD. Continue oxygen supplementation, steroids and bronchodilator therapy as needed. COPD with exacerbation: Continue above management plans. Hypertension: Blood pressure seems under reasonable control. RONDA inhibitor some beta blockers preferred. Recurrent fall: Patient will benefit from strengthening and fall prevention exercises. Management plans discussed with patient's family member, the daughter which was in the room. - Time Time Spent: 30 to 50 Minutes - CODE STATUS : was discussed, patient remains DO NOT RESUSCITATE. Surrogate decision-maker patient's daughter. Multiple medical problems were addressed.More than 50% of the time spent coordinating care, discussing management plans with involved caregivers. Management plans discussed with involved personnels. Medical decision making was of moderate complexity. Medications reviewed and adjusted accordingly: Yes
[2016-11-30] MEDS: MONTELUKAST SODIUM 10 MG TABLET PO SCH (23:21)
[2016-11-30] MEDS: TEMAZEPAM 15 MG CAPSULE PO SCH (23:22)
[2016-11-30] MEDS: LISINOPRIL 5 MG TABLET PO SCH (23:22)
[2016-11-30] MEDS: HYDROCODONE/ACETAMINOPHEN 10-325 MG TABLET PO PRN (23:23)
[2016-11-30] MEDS: DOXYCYCLINE HYCLATE 100 MG in DEXTROSE 5%-WATER 250 ML IV SCH (23:30)
[2016-11-30] MEDS: METOPROLOL SUCCINATE 50 MG TAB.SR.24H PO SCH (23:35)
[2016-12-01] MEDS: HEPARIN SOD (PORCINE) 5,000 UNIT/ML 1 ML SYRINGE SUBCUT SCH ×3 (06:18→21:34)
[2016-12-01 07:08] LABS: ANION GAP 10 (5-19); BLOOD UREA NITROGEN 43 mg/dL (7-20); CALCIUM 9.4 mg/dL (8.4-10.2); CARBON DIOXIDE 31 mmol/L (22-30); CHLORIDE 100 mmol/L (98-107); CREATININE RESULT 0.78 mg/dL (0.52-1.25); GLUCOSE 93 mg/dL (75-110); POTASSIUM 4.6 mmol/L (3.6-5.0); SODIUM 141.2 mmol/L (137-145)
[2016-12-01 07:35] LABS: HEMATOCRIT 41.5 % (36.0-47.0); HEMOGLOBIN 13.4 g/dL (12.0-15.5); HGB HCT DIFFERENCE -1.3; MEAN CORPUSCULAR HEMOGLOBIN 29.3 pg (27.0-33.4); MEAN CORPUSCULAR HGB CONC 32.2 g/dL (32.0-36.0); MEAN CORPUSCULAR VOLUME 91 fl (80-97); RED BLOOD COUNT 4.56 10^6/uL (3.72-5.28); RED CELL DISTRIBUTION WIDTH 14.3 % (11.5-14.0)
[2016-12-01 08:24] LABS: WHITE BLOOD COUNT 20.1 10^3/uL (4.0-10.5)
[2016-12-01] MEDS: BUDESONIDE NEB 0.5 MG/2 ML AMPUL NEB SCH ×2 (08:38→21:12)
[2016-12-01] MEDS ORDERED: LEVOFLOXACIN 500 MG TABLET PO SCH (10:00)
[2016-12-01] MEDS: LISINOPRIL 5 MG TABLET PO SCH (10:10)
[2016-12-01] MEDS: METOPROLOL SUCCINATE 50 MG TAB.SR.24H PO SCH ×2 (10:10→21:34)
[2016-12-01] MEDS: FLUTICASONE NASAL SPRAY 50 MCG/SPRY 120 SPRAY/16 GM NASL SCH ×2 (10:10→21:34)
[2016-12-01] MEDS: GUAIFENESIN 600 MG TABLET.SA PO SCH ×2 (10:10→21:34)
[2016-12-01] MEDS: PREDNISONE 10 MG TABLET PO SCH (10:11)
[2016-12-01] MEDS: DOXYCYCLINE HYCLATE 100 MG in DEXTROSE 5%-WATER 250 ML IV SCH (10:20)
--- NOTE | 2016-12-01 20:29 | PDOC PROGRESS REPORT ---
Subjective Progress Note for:: 12/01/16 Subjective:: Patient seems to be doing better with gradual improvement. Pt is denying any chest arm or neck discomfort. Patient denying any PND, orthopnea. Patient denied any sustained palpitations, dizziness, syncope, near syncope. Patient denying any fever chills. Patient denying any other significant discomfort. Patient is maintaining sinus rhythm. Respiration seems to have improved. 2-D echo results were discussed with patient and her daughter. It was a technically difficult study. Review of systems: Rest review of systems negative. Medications: Medications have been reviewed. Physical Exam Vital Signs: Temp Pulse Resp BP Pulse Ox 97.4 F 90 18 130/58 H 99 12/01/16 15:44 12/01/16 19:00 12/01/16 15:44 12/01/16 15:44 12/01/16 15:44 Intake & Output 11/30/16 12/01/16 12/02/16 06:59 06:59 06:59 Intake Total 724 866 9326 Balance 654 412 8505 Weight 59.8 kg 59.8 kg Exam: GENERAL: well-nourished and in no acute distress. Alert and oriented x3 HEAD: Atraumatic, normocephalic. EYES: Pupils equal round and reactive to light, extraocular movements intact, sclera anicteric, conjunctiva are normal. ENT: TMs normal, nares patent, oropharynx clear without exudates. Moist mucous membranes. No oral ulcerations or bleeding gums noted NECK: supple without lymphadenopathy. Trachea is central. No cervical or axillary lymphadenopathy noted. Carotids are 2+, JVD 8-10 CM LUNGS: Respiration seems nonlabored, no significant accessory muscle action noted. Bilateral mild wheezing noted with mild dullness bilaterally at bases. CHEST: Palpation of the chest wall shows no significant chest wall tenderness. No other significant abnormalities noted. 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 ABDOMEN: Soft, no significant tenderness appreciated, normoactive bowel sounds. No guarding, no rebound. No rigidity noted . No masses appreciated. EXTREMITIES: Pedal pulses are 1-2+, no calf tenderness noted. No clubbing or cyanosis.trace to 1+ pedal edema noted NEUROLOGICAL: Focused neurological exam showed no significant neurologic deficit. Normal speech, no focal weakness appreciated. PSYCH: Normal mood, normal affect. Judgment and insight within normal limits. SKIN: ulcerations or signs of pruritus noted. Multiple areas of ecchymosis noted. MUSCULOSKELETAL EXAM: No significant joint swelling noted. Results Laboratory Results: 12/01/16 06:39 12/01/16 06:39 12/01/16 12/01/16 06:39 06:39 WBC 20.1 H RBC 4.56 Hgb 13.4 Hct 41.5 MCV 91 MCH 29.3 MCHC 32.2 RDW 14.3 H Plt Count 267 Sodium 141.2 Potassium 4.6 Chloride 100 Carbon Dioxide 31 H Anion Gap 10 BUN 43 H Creatinine 0.78 Est GFR ( Amer) > 60 Est GFR (Non-Af Amer) > 60 Glucose 93 Calcium 9.4 Magnesium 2.0 Impressions: Cervical Spine CT 11/25/16 05:08 IMPRESSION: CHRONIC DEGENERATIVE CHANGES. NO ACUTE FINDINGS. Head CT 11/25/16 05:08 IMPRESSION: No acute abnormality in the brain. Chest X-Ray 11/28/16 00:00 IMPRESSION: Bibasilar pneumonia, left more than right. 7-12 week surveillance recommended. Assessment & Plan - Diagnosis (1) Acute combined systolic and diastolic congestive heart failure Is this a current diagnosis for this admission?: Yes (2) Cardiomyopathy Qualifiers: Cardiomyopathy type: unspecified Qualified Code(s): I42.9 - Cardiomyopathy, unspecified Is this a current diagnosis for this admission?: Yes (3) Acute on chronic respiratory failure with hypoxemia Is this a current diagnosis for this admission?: Yes (4) COPD with acute exacerbation Is this a current diagnosis for this admission?: Yes (5) Fall Qualifiers: Encounter type: initial encounter Qualified Code(s): W19.XXXA - Unspecified fall, initial encounter Is this a current diagnosis for this admission?: Yes (6) Hypertension Qualifiers: Hypertension type: essential hypertension Qualified Code(s): I10 - Essential (primary) hypertension Is this a current diagnosis for this admission?: Yes - Notes Notes: Congestive heart failure: This is related to both systolic and diastolic dysfunction. There could be element of right-sided heart failure. At this point recommend diuretic therapy. Will increase RONDA inhibitor. Continue beta 1 selective beta blockers. Cardiomyopathy: 2-D echocardiogram shows severely depressed LVEF. Do not feel patient would benefit much from defibrillator therapy. Optimize therapy for underlying CHF and cardiomyopathy. Patient may have underlying CAD as cause of cardiomyopathy. Do not feel patient will be a candidate for ischemia workup. Acute on chronic respiratory failure with hypoxemia: Patient has a history of severe COPD. Continue oxygen supplementation, steroids and bronchodilator therapy as needed. COPD with exacerbation: Continue above management plans. Hypertension: Blood pressure seems under reasonable control. Will increase RONDA inhibitor dose. Recurrent fall: Patient will benefit from strengthening and fall prevention exercises. Management plans discussed with patient's family member, the daughter which was in the room. - Time Time with patient: 15-25 minutes - CODE STATUS : was discussed, patient remains DO NOT RESUSCITATE. Surrogate decision-maker unchanged. Multiple medical problems were addressed.More than 50% of the time spent coordinating care, discussing management plans with involved caregivers. Management plans discussed with involved personnels. Medical decision making was of moderate complexity. Medications reviewed and adjusted accordingly: Yes
[2016-12-01] MEDS: LEVALBUTEROL HCL NEB 0.63 MG/3 ML AMPUL NEB PRN (21:12)
[2016-12-01] MEDS: TEMAZEPAM 15 MG CAPSULE PO SCH (21:33)
[2016-12-01] MEDS: MONTELUKAST SODIUM 10 MG TABLET PO SCH (21:33)
[2016-12-01] MEDS: DOXYCYCLINE HYCLATE 100 MG TABLET PO SCH (21:34)
[2016-12-01] MEDS: LISINOPRIL 10 MG TABLET PO SCH (21:34)
[2016-12-02] MEDS: HEPARIN SOD (PORCINE) 5,000 UNIT/ML 1 ML SYRINGE SUBCUT SCH ×2 (07:48→13:48)
[2016-12-02] MEDS: BUDESONIDE NEB 0.5 MG/2 ML AMPUL NEB SCH (09:01)
[2016-12-02] MEDS: DOXYCYCLINE HYCLATE 100 MG TABLET PO SCH (10:33)
[2016-12-02] MEDS: FLUTICASONE NASAL SPRAY 50 MCG/SPRY 120 SPRAY/16 GM NASL SCH (10:33)
[2016-12-02] MEDS: GUAIFENESIN 600 MG TABLET.SA PO SCH (10:34)
[2016-12-02] MEDS: LISINOPRIL 10 MG TABLET PO SCH (10:34)
[2016-12-02] MEDS: PREDNISONE 10 MG TABLET PO SCH (10:34)
[2016-12-02] MEDS: METOPROLOL SUCCINATE 50 MG TAB.SR.24H PO SCH (10:35)
[2016-12-02 12:12] VITALS: BP 121/51
--- NOTE | 2016-12-02 12:42 | PDOC DISCHARGE SUMMARY ---
General - Admit/Disc Date/PCP Admission Date/Primary Care Provider: 11/25/16 06:16 Discharge Date: 12/02/16 - Discharge Diagnosis (1) Pneumonia Is this a current diagnosis for this admission?: YesSummary: Continue doxycyline bid for 5 more days (2) COPD with acute exacerbation Is this a current diagnosis for this admission?: YesSummary: Family feels she is at baseline. Agreeable to home hospice with [facility] (3) Fall Is this a current diagnosis for this admission?: YesSummary: Back pain resolving (4) Tachycardia Is this a current diagnosis for this admission?: YesSummary: Resolved with beta aram therapy (5) Confusion and disorientation Is this a current diagnosis for this admission?: YesSummary: Patient has at baseline mild dementia. She will have 24 hr caretakers at home (6) Acute on chronic congestive heart failure with left ventricular diastolic dysfunction Is this a current diagnosis for this admission?: YesSummary: Patient had medication changes for heart failure. She was diuresed prn. She is euvolemic at the present time - Additional Information Resuscitation Status: Comfort Measures Only Discharge Diet: Regular Discharge Activity: Activity As Tolerated, Balance Activity w/Rest Home Medications: Albuterol Sulfate [Albuterol Sulfate 2.5mg/3 mL] 3 ml NEB RTQ4HP PRN 11/25/16 Albuterol Sulfate [Ventolin Hfa] 1 puff IH Q4HP PRN 11/25/16 Arformoterol Tartrate [[place]rovana Inhalation Solution 15 mcg/2 mL] 2 ml NEB RTBID 11/25/16 Budesonide [Pulmicort Neb 0.5 mg/2 ml Ampul] 2 ml NEB RTBID 11/25/16 Docusate Sodium [Colace 100 mg Capsule] 100 mg PO DAILY PRN 11/25/16 Ipratropium [place] [Atrovent 0.02% Neb 0.5 mg/2.5 ml Ampul] 2.5 ml NEB RTTID Prednisone [Deltasone 10 mg Tablet] 10 mg PO DAILY 11/25/16 Temazepam [Restoril] 30 mg PO QHS 11/25/16 Vit C/E/Zn/Coppr/Lutein/Zeaxan [Preservision Areds 2 Softgel] 1 cap PO BID 11/25 Acetaminophen [Tylenol 325 mg Tablet] 650 mg PO Q4HP PRN tablet 12/02/16 Benzonatate [Tessalon [place] 100 mg Capsule] 100 mg PO Q8HP PRN capsule Doxycycline Hyclate [Vibramycin 100 mg Tablet] 100 mg PO Q12 #10 tablet Fluticasone Propionate [Flonase Nasal [place] 50 Mcg/[place] 16 gm] 2 spray NASL Q12 spray.pump 12/02/16 Guaifenesin [Mucinex Sr 600 mg Tablet.sa] 1,200 mg PO Q12 tablet.sa 12/02/16 Hydrocodone/Acetaminophen [[place] 10-325 mg Tablet] 1 tab PO QIDP PRN #30 tablet 12/02/16 Levalbuterol HCl [Xopenex Neb 0.63 mg/3 ml Ampul] 0.63 mg NEB RTQ6HP PRN vial.neb 12/02/16 Lisinopril [Prinivil 10 mg Tablet] 10 mg PO Q12 #20 tablet 12/02/16 Metoprolol Succinate [Toprol Xl 50 mg Tab.sr] 50 mg PO Q12 #60 tab.sr.24h Montelukast Sodium [Singulair 10 mg Tablet] 10 mg PO QHS #30 tablet 12/02/16 History of Present Illness Patient complains of: Increasing shortness of breath and dyspnea History of Present Illness: Patient is an 86-year-old female presents emergency department via EMS with complaint of fall at home. Patient lives in her own home where she has an aid throughout the day with her. Her aid and daughter state that typically at home she does not wear her oxygen and typically in the middle the night when she has go the bathroom she gets short of breath and dizzy and has a tendency to fall. History including COPD on continuous O2 at 3 L but she often needs to be redirected to wear it. Daughter also notes that she has developed a cough over the past day, she only admits shortness of breath when she is wearing her oxygen but typically when they get her back on her O2 and give her breathing treatment she seems department backup. Denies any fevers at home. Denies any history of coronary artery disease, CHF, history of stroke or TIA. Denies h/o dementia Past medical history significant for hypertension, COPD on continuous 3 L O2, recurrent urinary tract infections, history of scoliosis, history of diverticulosis, history of irregular heart rate. Past surgical history significant for hysterectomy section Social history former smoker, rare alcohol use, denies any drug use. Hospital Course Hospital Course: Patient was admitted to telemetry floor on IV broad spectrum antibiotics, IV steroids and nebulized treatments. She improved to her baseline oxygen requirement of 3 L/m. She continued to have leukocytosis with white count of 17 ,000. Sputum culture grew group FStreptococcus. Antibiotics were de-escalate it doxycycline twice a day. On hospitalization day #4 she had increasing respiratory distress, with significant crackles or wheezing. She was treated with IV Lasix and diuresed and improved. Transthoracic echo was obtained, which found her EF to be 35%, grade 2 over 4 diastolic dysfunction. Cardiology was consulted, Dr Maddox saw the patient in consult. Medications were adjusted she was started on RONDA inhibitor and beta aram. Physical Exam Vital Signs: Temp Pulse Resp BP Pulse Ox 97.5 F 81 24 H 150/70 H 95 12/02/16 07:00 12/02/16 08:00 12/02/16 08:00 12/02/16 07:00 12/02/16 08:00 Intake & Output 12/01/16 12/02/16 12/03/16 06:59 06:59 06:59 Intake Total 830 1270 Balance 830 1270 Weight 59.8 kg 60.2 kg General appearance: PRESENT: no acute distress, thin, well-developed, well- nourished Head exam: PRESENT: atraumatic, normocephalic Eye exam: PRESENT: conjunctiva pink, EOMI, PERRLA. ABSENT: scleral icterus Ear exam: PRESENT: normal external ear exam Mouth exam: PRESENT: moist, tongue midline Neck exam: ABSENT: carotid bruit, JVD, lymphadenopathy, thyromegaly Respiratory exam: PRESENT: decreased breath sounds, rhonchi, symmetrical, unlabored Cardiovascular exam: PRESENT: RRR, systolic murmur Pulses: PRESENT: normal carotid pulses, normal radial pulses Vascular exam: PRESENT: normal capillary refill GI/Abdominal exam: PRESENT: normal bowel sounds, soft. ABSENT: distended, guarding, mass, organolmegaly, rebound, tenderness Rectal exam: PRESENT: deferred Neurological exam: PRESENT: alert, awake, oriented to person, CN II-XII grossly intact Psychiatric exam: PRESENT: agitated Focused psych exam: PRESENT: flight of ideas Skin exam: PRESENT: dry, intact, warm. ABSENT: cyanosis, rash Results Laboratory Results: 12/01/16 06:39 12/01/16 06:39 Impressions: Cervical Spine CT 11/25/16 05:08 IMPRESSION: CHRONIC DEGENERATIVE CHANGES. NO ACUTE FINDINGS. Head CT 11/25/16 05:08 IMPRESSION: No acute abnormality in the brain. Chest X-Ray 11/28/16 00:00 IMPRESSION: Bibasilar pneumonia, left more than right. 7-12 week surveillance recommended. Qualifiers PATEINT BEING DISCHARGED WITH ANY OF THE FOLLOWING DIAGNOSIS?: No Plan Discharge Plan: Home with [facility] Time Spent: Less than 30 Minutes
[2016-12-02] MEDS: LORAZEPAM INJ 2 MG/1 ML VIAL IV PRN (13:49)
--- NOTE | 2016-12-02 20:27 | PDOC PROGRESS REPORT ---
Subjective Progress Note for:: 12/02/16 Subjective:: Patient seems to be doing better with gradual improvement. Pt is denying any chest arm or neck discomfort. Patient denying any PND, orthopnea. Patient denied any sustained palpitations, dizziness, syncope, near syncope. Patient denying any fever chills. Patient denying any other significant discomfort. Patient is maintaining sinus rhythm. Respiration seems to have improved. 2-D echo results were discussed with patient and her daughter. It was a technically difficult study. Patient dyspnea has significantly improved. Patient is wanting to be discharged home. Review of systems: Rest review of systems negative. Medications: Medications have been reviewed. Physical Exam Vital Signs: Temp Pulse Resp BP Pulse Ox 97.2 F 87 22 H 121/51 L 96 12/02/16 14:30 12/02/16 14:30 12/02/16 14:30 12/02/16 14:30 12/02/16 14:30 Intake & Output 12/01/16 12/02/16 12/03/16 06:59 06:59 06:59 Intake Total 830 1270 Balance 830 1270 Weight 59.8 kg 60.2 kg Exam: GENERAL: well-nourished and in no acute distress. Alert and oriented x3 HEAD: Atraumatic, normocephalic. EYES: Pupils equal round and reactive to light, extraocular movements intact, sclera anicteric, conjunctiva are normal. ENT: TMs normal, nares patent, oropharynx clear without exudates. Moist mucous membranes. No oral ulcerations or bleeding gums noted NECK: supple without lymphadenopathy. Trachea is central. No cervical or axillary lymphadenopathy noted. Carotids are 2+, JVD WNL LUNGS: Respiration seems nonlabored, no significant accessory muscle action noted. Lungs seems very clear today.. CHEST: Palpation of the chest wall shows no significant chest wall tenderness. No other significant abnormalities noted. 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 ABDOMEN: Soft, no significant tenderness appreciated, normoactive bowel sounds. No guarding, no rebound. No rigidity noted . No masses appreciated. EXTREMITIES: Pedal pulses are 1-2+, no calf tenderness noted. No clubbing or cyanosis.trace pedal edema noted NEUROLOGICAL: Focused neurological exam showed no significant neurologic deficit. Normal speech, no focal weakness appreciated. PSYCH: Normal mood, normal affect. Judgment and insight within normal limits. SKIN: ulcerations or signs of pruritus noted. Multiple areas of ecchymosis noted. MUSCULOSKELETAL EXAM: No significant joint swelling noted. Results Laboratory Results: 12/01/16 06:39 12/01/16 06:39 12/01/16 06:39 WBC 20.1 H RBC 4.56 Hgb 13.4 Hct 41.5 MCV 91 MCH 29.3 MCHC 32.2 RDW 14.3 H Plt Count 267 Impressions: Cervical Spine CT 11/25/16 05:08 IMPRESSION: CHRONIC DEGENERATIVE CHANGES. NO ACUTE FINDINGS. Head CT 11/25/16 05:08 IMPRESSION: No acute abnormality in the brain. Chest X-Ray 11/28/16 00:00 IMPRESSION: Bibasilar pneumonia, left more than right. 7-12 week surveillance recommended. Assessment & Plan - Diagnosis (1) Acute combined systolic and diastolic congestive heart failure Is this a current diagnosis for this admission?: Yes (2) Cardiomyopathy Qualifiers: Cardiomyopathy type: unspecified Qualified Code(s): I42.9 - Cardiomyopathy, unspecified Is this a current diagnosis for this admission?: Yes (3) Acute on chronic respiratory failure with hypoxemia Is this a current diagnosis for this admission?: Yes (4) COPD with acute exacerbation Is this a current diagnosis for this admission?: Yes (5) Fall Qualifiers: Encounter type: initial encounter Qualified Code(s): W19.XXXA - Unspecified fall, initial encounter Is this a current diagnosis for this admission?: Yes (6) Hypertension Qualifiers: Hypertension type: essential hypertension Qualified Code(s): I10 - Essential (primary) hypertension Is this a current diagnosis for this admission?: Yes - Notes Notes: Patient's symptoms of dyspnea significantly improved. It was felt that patient dyspnea is secondary to both CHF and COPD exacerbation. As regards cardiomyopathy, patient seems to be on a good regimen. Respiratory failure has improved. Patient to continue with oxygen supplementation. Blood pressure seems reasonably well controlled. - Time Time with patient: 15-25 minutes - CODE STATUS : was discussed, patient remains DO NOT RESUSCITATE. Surrogate decision-maker unchanged. Multiple medical problems were addressed.More than 50% of the time spent coordinating care, discussing management plans with involved caregivers. Management plans discussed with involved personnels. Medical decision making was of moderate complexity. Medications reviewed and adjusted accordingly: Yes
== END 2016-12-02 15:04 | disposition hospice, home (50) | DRG 190 ==
LOC: ER 02:39 → EH 06:16 → UNDOADMIN 06:58 → 5 11:46
PROVIDERS: ADMIT Internal Medicine; ATTEND Internal Medicine
PROC: 3E0F73Z Introduction of Anti-inflammatory into Respiratory Tract, Via Natural or Artificial Opening (ICD-10-PCS; principal; 2016-11-25)
DX: J44.0 Chronic obstructive pulmonary disease with (acute) lower respiratory infection (principal); J15.3 Pneumonia due to streptococcus, group B; J96.21 Acute and chronic respiratory failure with hypoxia; I50.41 Acute combined systolic (congestive) and diastolic (congestive) heart failure; I42.9 Cardiomyopathy, unspecified; J44.1 Chronic obstructive pulmonary disease with (acute) exacerbation; M54.9 Dorsalgia, unspecified; S01.81XA Laceration without foreign body of other part of head, initial encounter; S81.011A Laceration without foreign body, right knee, initial encounter; S81.812A Laceration without foreign body, left lower leg, initial encounter; S51.011A Laceration without foreign body of right elbow, initial encounter; W01.0XXA Fall on same level from slipping, tripping and stumbling without subsequent striking against object, initial encounter; F03.90 Unspecified dementia, unspecified severity, without behavioral disturbance, psychotic disturbance, mood disturbance, and anxiety; M41.9 Scoliosis, unspecified; I48.91 Unspecified atrial fibrillation; I10 Essential (primary) hypertension; J45.909 Unspecified asthma, uncomplicated; I44.60 Unspecified fascicular block; F10.97 Alcohol use, unspecified with alcohol-induced persisting dementia; Z66 Do not resuscitate; Z79.899 Other long term (current) drug therapy; Z91.81 History of falling; Z99.81 Dependence on supplemental oxygen; Z90.710 Acquired absence of both cervix and uterus; Z87.891 Personal history of nicotine dependence
CPT/HCPCS: 36415; 51701; 70450; 71010; 71020; 72125; 80048; 80053; 81001; 82550; 82553; 82803; 82962; 83605; 83735; 83880; 84484; 85025; 85027; 87040; 87070; 87077; 87205; 93005; 93010; 93306; 94640; 94667; 94668; 94799; 96360; 99285; G8978-GP; G8979-GP; J0456; J0696; J1644; J1940; J2060; J2930; J3490; J7030; J7060; J7512; J7614; J7620